=== PATIENT | female | born 1985 | race Caucasian/White ===

== ENCOUNTER 2017-02-24 13:04 | Emergency (ER) | payer MEDICAID ==
[~2017-02-24] VITALS: Ht 162.6 cm; Wt 56.9 kg
[~2017-02-24 13:04] MED LIST: AZIT500T2 PO; PANT40TA3 PO
[2017-02-24 13:13] VITALS: Ht 162.6 cm; Wt 56.9 kg
--- NOTE | 2017-02-24 13:53 | ERA ---
ER Documentation Chief Complaint Date/Time DATE: 02/24/17 TIME: 13:51 Chief Complaint VAGINAL BLEEDING 7 WEEKS ,CRAMPING HPI This is a 31-year-old female who presents with a chief complaint of left-sided abdominal pain and spotting. Patient is 7 weeks with her first . Patient denies multiple sexual partners, vaginal discharge, dysuria , hematuria, or severe abdominal pain. Patient has a history of ovarian cysts and claims that this feels similar. Patient has not taken any medications at this time to relieve the symptoms. ROS All systems reviewed and are negative except as per history of present illness. Medications Home Meds Active Scripts Azithromycin* (Zithromax* Tri-Jimmy) 500 Mg Tablet, 500 MG PO DAILY for 3 Days, TAB Prov:EILEEN PAZ MD 07/28/15 Reported Medications Pantoprazole* (Protonix*) 40 Mg Tablet.dr, 40 MG PO DAILY, TAB 07/28/15 Allergies Allergies: Coded Allergies: Penicillins (Verified Allergy, Unknown, 02/24/17) cimetidine (Verified Allergy, Unknown, 02/24/17) PMhx/Soc Hx Alcohol Use: No Hx Substance Use: No Hx Tobacco Use: No Physical Exam Vitals Vital Signs Date Time Temp Pulse Resp B/P Pulse Ox O2 Delivery O2 Flow Rate FiO2 02/24/17 13:13 99.5 83 18 116/75 100 Physical Exam Const: Well-appearing 31-year-old female who is 7 weeks presenting with her boyfriend. Head: Atraumatic Eyes: Normal Conjunctiva ENT: Normal External Ears, Nose and Mouth. Neck: Full range of motion..~ No meningismus. Resp: Clear to auscultation bilaterally Cardio: Regular rate and rhythm, no murmurs Abd: Soft, non tender, non distended. Normal bowel sounds Skin: No petechiae or rashes Back: No midline or flank tenderness Ext: No cyanosis, or edema Neur: Awake and alert Psych: Normal Mood and Affect Result Diagram: 02/24/17 1410 Results 24 hrs Laboratory Tests Test 02/24/17 14:10 White Blood Count 8.310^3/ul Red Blood Count 4.5110^6/ul Hemoglobin 14.0g/dl Hematocrit 41.3% Mean Corpuscular Volume 91.6fl Mean Corpuscular Hemoglobin 31.0pg Mean Corpuscular Hemoglobin Concent 33.9g/dl Red Cell Distribution Width 12.0% Platelet Count 88835^3/UL Mean Platelet Volume 10.6fl Neutrophils % 58.2% Lymphocytes % 31.2% Monocytes % 8.2% Eosinophils % 1.2% Basophils % 0.8% Nucleated Red Blood Cells % 0.0/100WBC Neutrophils # 4.810^3/ul Lymphocytes # 2.610^3/ul Monocytes # 0.710^3/ul Eosinophils # 0.110^3/ul Basophils # 0.110^3/ul Nucleated Red Blood Cells # 0.010^3/ul Urine Color LT. YELLOW Urine Clarity CLEAR Urine pH 6.0 Urine Specific [place] 1.020 Urine Ketones NEGATIVE Urine Nitrite NEGATIVE Urine Bilirubin NEGATIVE Urine Urobilinogen 0.2 E.U./dL Urine Leukocyte Esterase NEGATIVE Urine Microscopic RBC Pending Urine Microscopic WBC Pending Urine Hemoglobin TRACE Urine Glucose NEGATIVE% Urine Total Protein NEGATIVE Procedures/MDM Patient was worked up and evaluated for mild pelvic pain and spotting while 7 weeks . Ultrasound studies showed the followin. Single intrauterine gestational sac measuring 1.99 cm. There is no pole or yolk sac indicating probable failed . Follow-up ultrasound in 7 days is advised. 2. Small amount of fluid in the endometrial canal. 3. Otherwise unremarkable study. Most likely diagnosis at this time is spontaneous versus threatened . Cannot rule out viable or ectopic at this time. Patient has been advised to follow-up with SURFACE GRINDING [facility]INE [facility] or to the emergency department in 2 days for repeat beta hCG levels as well as follow-up and 7 days for repeat ultrasound. I have spoken with the patient and explained her current status and she has verbally acknowledges she understands. Patient's vitals are currently stable and her current condition is appropriate for discharge. We will go ahead and discharge the patient with discharge instructions and return precautions. Departure Diagnosis: Primary Impression: Vaginal bleeding Additional Impression: Spontaneous Condition: Stable Additional Instructions: Follow-up with [facility] or return to emergency department in 2 days for repeat beta hCG values and follow-up and 7 days for repeat ultrasound. Return the the emergency department immediately if symptoms worsen or change. If you have any questions regarding medications, ask your pharmacist or us before you leave. If any adverse reactions occur while taking your medications, discontinue the treatment and return to the emergency department immediately. Take your medications as directed, and complete the entire course of treatment. VALERIA KIRBY PA-C February 24, 2017 13:53 VALERIA KIRBY PA-C February 24, 2017 13:53
[2017-02-24 14:35] LABS: ADD SCAN DIFF NO
[2017-02-24 14:44] LABS: BASOPHIL # 0.1 10^3/ul (0.0-0.1); BASOPHILS % 0.8 % (0.0-2.0); EOSINOPHILS # 0.1 10^3/ul (0.0-0.5); EOSINOPHILS % 1.2 % (0.0-7.0); HEMATOCRIT 41.3 % (37.0-47.0); LYMPHOCYTES # 2.6 10^3/ul (0.8-2.9); LYMPHOCYTES % 31.2 % (15.0-51.0); MEAN CORPUSCULAR HGB CONC 33.9 g/dl (32.0-37.0); MEAN CORPUSCULAR VOLUME 91.6 fl (82.0-101.0); MEAN PLATELET VOLUME 10.6 fl (7.4-10.4); MONOCYTE # 0.7 10^3/ul (0.3-0.9); MONOCYTES % 8.2 % (0.0-11.0); NEUTROPHIL # 4.8 10^3/ul (1.6-7.5); NEUTROPHILS % 58.2 % (39.0-77.0); PLATELET COUNT 264 10^3/UL (140-415); RED BLOOD COUNT 4.51 10^6/ul (4.20-5.40); WHITE BLOOD COUNT 8.3 10^3/ul (4.8-10.8)
[2017-02-24 14:47] LABS: ADD UMIC YES; URINE BILIRUBIN (Dip) NEGATIVE (NEGATIVE); URINE BLOOD (Dip) TRACE (NEGATIVE); URINE COLOR LT. YELLOW (YELLOW); URINE GLUCOSE (Dip) NEGATIVE (NEGATIVE); URINE KETONES (Dip) NEGATIVE (NEGATIVE); URINE LEUKOCYTE ESTERASE (Dip) NEGATIVE (NEGATIVE); URINE NITRITE (Dip) NEGATIVE (NEGATIVE); URINE TOTAL PROTEIN (Dip) NEGATIVE (NEGATIVE); URINE UROBILINOGEN (Dip) 0.2 E.U./dL (0.1-1.0)
--- NOTE | 2017-02-24 14:50 | RADRPT ---
PROCEDURE: OB Ultrasound. CLINICAL INDICATION: Positive test. Vaginal bleeding. TECHNIQUE: Ultrasound of the pelvis was performed with transabdominal and transvaginal sonography in the axial and sagittal planes. COMPARISON: No prior study is available for comparison. FINDINGS: There is a single intrauterine gestational sac. pole and yolk sac are are not visualized. Mean sac diameter is 1.99 cm. Menstrual age by ultrasound dates is 6 weeks 6 days. There is a small amount of fluid in the endometrial canal in a region measuring 0.4 x 0.3 x 0.4 cm. The right ovary appears normal measuring 2.7 x 2.0 x 1.9 cm. The left ovary appears normal measuring 2.6 x 1.3 x 1.8 cm. Color Doppler and pulsed Doppler sonography demonstrate normal flow to the ovaries. There is no other pelvic mass or free fluid. IMPRESSION: 1. Single intrauterine gestational sac measuring 1.99 cm. There is no pole or yolk sac indic ating probable failed . Follow-up ultrasound in 7 days is advised. 2. Small amount of fluid in the endometrial canal. 3. Otherwise unremarkable study. RPTAT: QQ .Hal Mann MD, Date Time Electronically viewed and signed by .Hal Mann MD, on 02/24/2017 14:50 .R/
[2017-02-24 15:27] LABS: SQUAMOUS EPITHELIAL CELL,UR MODERATE; URINE RBCS 0-2 /HPF (0)
[2017-02-24 15:28] LABS: BACTERIA,URINE MODERATE; MUCUS,URINE MODERATE
[2017-02-24 16:03] VITALS: BP 124/79; PULSE 97; RESP 16; TEMP 99.9
== END 2017-02-24 16:04 | disposition home or self-care (01) ==
LOC: FTE 13:04
DX: O03.9 Complete or unspecified spontaneous abortion without complication (principal); R10.2 Pelvic and perineal pain
CPT/HCPCS: 76801; 76817; 81001; 84702; 85025; 86900; 86901; Z7502

== ENCOUNTER 2017-07-20 16:43 | Emergency (ER) | payer MEDICAID ==
[~2017-07-20] VITALS: Ht 157.5 cm; Wt 56.0 kg
[2017-07-20 16:47] VITALS: Ht 157.5 cm; Wt 56.0 kg
--- NOTE | 2017-07-20 17:20 | ERD ---
ER Documentation Chief Complaint Date/Time DATE: 07/20/17 TIME: 17:19 Chief Complaint sob, appear having anxiety attack HPI 32-year-old female, history of anxiety otherwise healthy presents with shortness of breath, numbness to her fingers, and chest pain. At the started about an hour ago when she was at home with her , states that she was having auditory and visual hallucinations stating that someone might of been in the home and she heard some noise he states that he did not hear any of this at the time. She has not had any new stressors, states that she tried taking Benadryl with help with her symptoms. She has not had any leg pain, leg swelling, recent travel, or takes OCPs. She has no history of DVT or pulmonary embolus. ROS All systems reviewed and are negative except as per history of present illness. Medications Home Meds Active Scripts Lorazepam* (Ativan*) 0.5 Mg Tablet, 0.5 MG PO Q8, #10 TAB Prov:ARCHIE GUNTER PA-C 07/20/17 Azithromycin* (Zithromax* Tri-Jimmy) 500 Mg Tablet, 500 MG PO DAILY for 3 Days, TAB Prov:EILEEN PAZ MD 07/28/15 Reported Medications Pantoprazole* (Protonix*) 40 Mg Tablet.dr, 40 MG PO DAILY, TAB 07/28/15 Allergies Allergies: Coded Allergies: Penicillins (Verified Allergy, Unknown, 07/20/17) cimetidine (Verified Allergy, Unknown, 07/20/17) PMhx/Soc History of Surgery: Yes (dilatation and curretage) Anesthesia Reaction: No Hx Neurological Disorder: No Hx Respiratory Disorders: No Hx Cardiac Disorders: No Hx Psychiatric Problems: No Hx Miscellaneous Medical Probl: No Hx Alcohol Use: No Hx Substance Use: No Hx Tobacco Use: No Physical Exam Vitals Vital Signs Date Time Temp Pulse Resp B/P Pulse Ox O2 Delivery O2 Flow Rate FiO2 07/20/17 18:54 98.0 90 18 124/76 99 Room Air 07/20/17 16:47 98.1 120 28 134/84 99 Physical Exam General: Tachypnea, anxious, diaphoretic. HEENT: Head is normocephalic, atraumatic. No scleral icterus. Pupils are equal , round, and reactive. Pharynx is clear. Neck: Supple. Nontender. Masses. Lungs: Clear to auscultation. Normal air movement. Heart: Regular rate and rhythm. S1 and S2 are normal. No murmurs, gallops, or rubs. Abdomen: Soft, nontender, nondistended. Bowel sounds are normoactive. Extremities: No clubbing or cyanosis. Normal pulses. Moving extremities x 4. No weakness. Neurologic: Alert and oriented 3. No focal deficits. Skin: Normal turgor. No rash or lesions. Plan anxious, not suicidal, denies any thoughts of hurting herself. Results 24 hrs Current Medications Medications (Trade) Dose Ordered Sig/Otf Route PRN Reason Start Time Stop Time Status Last Admin Dose Admin Lorazepam 1 mg 1 mg ONCE ONCE IV 07/20/17 17:30 07/20/17 17:31 DC 07/20/17 17:15 Sodium Chloride (NS) 1,000 ml @ 1,000 mls/hr Q1H ONCE IV 07/20/17 17:30 07/20/17 18:29 DC 07/20/17 17:12 12-lead EKG(interpreted by supervising physician): Dr. Montes Rate/Rhythm: Normal Sinus Rhythm, rate of 88 QRS, ST, T-waves: No changes consistent w/ acute ischemia, no intervals, no dysrhythmias, no ectopy Impression: No evidence of ischemia or arrhythmia Procedures/MDM ED course: Patient had an IV line established, she was given Ativan 1 mg IV with fluid bolus of normal saline 1 L. Medical decision makin-year-old female presents with shortness of breath, tachycardia appearing very anxious. Patient was treated with ativan and fluids and tachypnea, tachycardia resolved. patient was concerned of a respiratory issue, I doubt pulmonary embolus, TIA, stroke, asthma, dissection, acute coronary syndrome. 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 Symptoms are most consistent with anxiety, as she responded well to Ativan. Departure Diagnosis: Primary Impression: Anxiety Condition: ARCHIE Alcocer PA-C Jul 20, 2017 17:20
[2017-07-20] MEDS ORDERED: LORAZEPAM 2 MG INJ IV ONE (17:30)
[2017-07-20] MEDS ORDERED: SOD CHLORIDE 0.9% 1,000 ML IV ONE (17:30)
[2017-07-20] MEDS ORDERED: LORA-441 PO (18:42)
[2017-07-20 18:54] VITALS: BP 124/76; PULSE 90; RESP 18; TEMP 98
== END 2017-07-20 18:53 | disposition home or self-care (01) ==
LOC: FTE 16:43
DX: F41.9 Anxiety disorder, unspecified (principal)
CPT/HCPCS: 93005; 96374; J2060; J7030; Z7502

== ENCOUNTER 2017-07-22 12:12 | Emergency (ER) | payer MEDICAID ==
[~2017-07-22] VITALS: Wt 52.3 kg
[~2017-07-22 12:12] MED LIST changes: +LORA-441 PO
[2017-07-22] MEDS ORDERED: ONDANSETRON 4 MG INJ IV STA (15:08)
[2017-07-22] MEDS ORDERED: SOD CHLORIDE 0.9% 1,000 ML IV STA (15:08)
[2017-07-22 15:39] LABS: BASOPHIL # 0.1 10^3/ul (0.0-0.1); EOSINOPHILS % 0.2 % (0.0-7.0); HEMATOCRIT 39.1 % (37.0-47.0); HEMOGLOBIN 13.9 g/dl (12.0-16.0); LYMPHOCYTES # 1.4 10^3/ul (0.8-2.9); LYMPHOCYTES % 23.1 % (15.0-51.0); MEAN CORPUSCULAR HEMOGLOBIN 31.9 pg (29.0-33.0); MEAN CORPUSCULAR HGB CONC 35.5 g/dl (32.0-37.0); MEAN CORPUSCULAR VOLUME 89.7 fl (82.0-101.0); MEAN PLATELET VOLUME 10.2 fl (7.4-10.4); MONOCYTE # 0.3 10^3/ul (0.3-0.9); MONOCYTES % 5.5 % (0.0-11.0); NEUTROPHIL # 4.3 10^3/ul (1.6-7.5); PLATELET COUNT 245 10^3/UL (140-415); RED BLOOD COUNT 4.36 10^6/ul (4.20-5.40); RED CELL DISTRIBUTION WIDTH 11.9 % (11.5-14.5); WHITE BLOOD COUNT 6.1 10^3/ul (4.8-10.8)
[2017-07-22 15:55] LABS: ADD UMIC NO; UR ASCORBIC ACID NEGATIVE (NEGATIVE); UR BACTERIA FEW /HPF (NONE SEEN); UR BILIRUBIN (Dip) NEGATIVE (NEGATIVE); UR BLOOD (Dip) NEGATIVE (NEGATIVE); UR CLARITY SLIGHTLY CLOUDY (CLEAR); UR COLOR YELLOW (YELLOW); UR GLUCOSE (Dip) NEGATIVE (NEGATIVE); UR KETONES (Dip) 2+ mg/dL (NEGATIVE); UR LEUKOCYTE ESTERASE (Dip) NEGATIVE Leu/ul (NEGATIVE); UR MUCUS MODERATE /HPF (NONE SEEN); UR NITRITE (Dip) NEGATIVE (NEGATIVE); UR RBC 0 /HPF (0-5); UR SPECIFIC GRAVITY (Dip) 1.015 (1.003-1.030); UR SQUAMOUS EPITHELIAL CELL FEW /HPF (FEW); UR TOTAL PROTEIN (Dip) NEGATIVE (NEGATIVE); UR UROBILINOGEN (Dip) NEGATIVE (NEGATIVE)
[2017-07-22 15:57] LABS: ALBUMIN 4.7 g/dl (3.3-4.9); ALBUMIN/GLOBULIN RATIO 1.42; BILIRUBIN,INDIRECT 1.6 mg/dl (0-1.1); BILIRUBIN,TOTAL 1.6 mg/dl (0.2-1.3); CALCIUM 9.9 mg/dl (8.4-10.2); CREATININE 0.66 mg/dl (0.44-1.00); POTASSIUM 3.2 mmol/L (3.5-5.1)
[2017-07-22] MEDS ORDERED: ACET500C5 PO (17:26)
[2017-07-22] MEDS ORDERED: ONDA4TAB14 PO (17:26)
[2017-07-22 17:36] VITALS: BP 128/70; PULSE 79; RESP 18; TEMP 98.5
--- NOTE | 2017-07-22 17:43 | ERD ---
ER Documentation Chief Complaint Date/Time DATE: 07/22/17 TIME: 17:30 Chief Complaint n/v/d, bodyaches, chills, r. neck pain HPI 32-year-old female patient with a past medical history of gastric ulcer presents to the ED complaining of vomiting and diarrhea that started intermittently for 5 days. Reports that she has some throat pain. States that she feels like something is stuck in her throat. Reports her last menstruation was on July 02, 2017. Reports that her diarrhea is greenish in color. Denies any melena, bloody stools, abdominal pain, chest pain, shortness of breath, wheezing, fever, chills. Denies any dysuria, urgency, frequency, hematuria. ROS All systems reviewed and are negative except as per history of present illness. Medications Home Meds Active Scripts Acetaminophen* (Tylophen*) 500 Mg Capsule, 1 CAP PO Q6H Y for PAIN AND OR ELEVATED TEMP, #20 CAP Prov:JESUS TODD PA-C 07/22/17 Ondansetron (Ondansetron Odt) 4 Mg Tab.rapdis, 4 MG PO Q6H Y for NAUSEA AND/OR VOMITING, #10 TAB Prov:JESUS TODD PA-C 07/22/17 Lorazepam* (Ativan*) 0.5 Mg Tablet, 0.5 MG PO Q8, #10 TAB Prov:ARCHIE GUNTER PA-C 07/20/17 Azithromycin* (Zithromax* Tri-Jimmy) 500 Mg Tablet, 500 MG PO DAILY for 3 Days, TAB Prov:EILEEN PAZ MD 07/28/15 Reported Medications Pantoprazole* (Protonix*) 40 Mg Tablet.dr, 40 MG PO DAILY, TAB 07/28/15 Allergies Allergies: Coded Allergies: Penicillins (Verified Allergy, Unknown, 07/20/17) cimetidine (Verified Allergy, Unknown, 07/20/17) PMhx/Soc History of Surgery: Yes (dilatation and curretage) Anesthesia Reaction: No Hx Neurological Disorder: No Hx Respiratory Disorders: No Hx Cardiac Disorders: No Hx Psychiatric Problems: No Hx Miscellaneous Medical Probl: No Hx Alcohol Use: No Hx Substance Use: No Hx Tobacco Use: No Smoking Status: Never smoker Physical Exam Vitals Vital Signs Date Time Temp Pulse Resp B/P Pulse Ox O2 Delivery O2 Flow Rate FiO2 07/22/17 17:36 98.5 79 18 128/70 99 Room Air 07/22/17 12:14 98.8 98 20 130/73 99 Physical Exam Const: [id number], well-nourished. In no acute distress. Head: Atraumatic, normocephalic Eyes: Normal Conjunctiva without injection. No purulent discharge. ENT: Normal external ear, nose. Moist oropharynx without tonsillar exudates. Non -erythematous pharynx. Uvula midline. No drooling. No trismus. Neck: No cervical midline tenderness. Full range of motion. No meningismus. No cervical lymphadenopathy. No JVD. Resp: Clear to auscultation bilaterally. No wheezing, rhonchi, rales, or crackles. No accessory muscle use. No retractions. Cardio: Regular rate and rhythm. No murmurs, rubs or gallops. Abd: Soft, nontender, non distended. Normal bowel sounds. No palpable masses. No rebound tenderness. No guarding. Negative McBurney's point. Negative psoas sign. Negative obturator sign. Skin: No petechiae or rashes Back: No midline tenderness. No CVA tenderness. Ext: No cyanosis, or edema. Neur: Awake and alert. Normal gait. Normal coordination. Psych: Normal Mood and Affect Results 24 hrs Laboratory Tests Test 07/22/17 13:26 07/22/17 15:28 Urine Color YELLOW Urine Clarity SLIGHTLY CLOUDY Urine pH 5.0 Urine Specific [place] 1.015 Urine Ketones 2+mg/dL Urine Nitrite NEGATIVEmg/dL Urine Bilirubin NEGATIVEmg/dL Urine Urobilinogen NEGATIVEmg/dL Urine Leukocyte Esterase NEGATIVELeu/ul Urine Microscopic RBC 0/HPF Urine Microscopic WBC 1/HPF Urine Squamous Epithelial Cells FEW/HPF Urine Bacteria FEW/HPF Urine Mucus MODERATE/HPF Urine Hemoglobin NEGATIVEmg/dL Urine Glucose NEGATIVEmg/dL Urine Total Protein NEGATIVEmg/dl White Blood Count 6.110^3/ul Red Blood Count 4.3610^6/ul Hemoglobin 13.9g/dl Hematocrit 39.1% Mean Corpuscular Volume 89.7fl Mean Corpuscular Hemoglobin 31.9pg Mean Corpuscular Hemoglobin Concent 35.5g/dl Red Cell Distribution Width 11.9% Platelet Count 32572^3/UL Mean Platelet Volume 10.2fl Neutrophils % 70.0% Lymphocytes % 23.1% Monocytes % 5.5% Eosinophils % 0.2% Basophils % 1.0% Nucleated Red Blood Cells % 0.0/100WBC Neutrophils # 4.310^3/ul Lymphocytes # 1.410^3/ul Monocytes # 0.310^3/ul Eosinophils # 0.010^3/ul Basophils # 0.110^3/ul Nucleated Red Blood Cells # 0.010^3/ul Sodium Level 143mmol/L Potassium Level 3.2mmol/L Chloride Level 105mmol/L Carbon Dioxide Level 26mmol/L Anion Gap 15 Blood Urea Nitrogen 6mg/dl Creatinine 0.66mg/dl Glucose Level 95mg/dl Calcium Level 9.9mg/dl Total Bilirubin 1.6mg/dl Direct Bilirubin 0.00mg/dl Indirect Bilirubin 1.6mg/dl Aspartate Amino Transf (AST/SGOT) 19IU/L Alanine Aminotransferase (ALT/SGPT) 25IU/L Alkaline Phosphatase 66IU/L Total Protein 8.0g/dl Albumin 4.7g/dl Globulin 3.30g/dl Albumin/Globulin Ratio 1.42 Lipase 78U/L Current Medications Medications (Trade) Dose Ordered Sig/Otf Route PRN Reason Start Time Stop Time Status Last Admin Dose Admin Sodium Chloride (NS) 1,000 ml @ 1,000 mls/hr Q1H STAT IV 07/22/17 15:08 07/22/17 16:07 DC 07/22/17 15:36 Ondansetron HCl (Zofran Inj) 4 mg ONCE STAT IV 07/22/17 15:08 07/22/17 15:10 DC 07/22/17 15:36 Procedures/MDM 32-year-old female patient with no significant past medical history presents to the ED complaining of nausea, vomiting, diarrhea, throat pain. Patient is afebrile and nontoxic-appearing. Patient has normal vital signs. Patient was further worked up with CBC, CMP, lipase, UA. Patient's pain and symptoms have improved after treatment with 4 mg IV Zofran and 1 L normal saline. CBC: No leukocytosis. No e/o of systemic infection. No e/o anemia. CMP: No e/o severe acidosis, alkalosis, renal failure, diabetic ketoacidosis, liver disease Lipase within normal limits. Urine: No leukocyte esterase, no nitrites, no hematuria. Urine : Negative Rapid strep negative. Pending throat culture. Low suspicion for pneumonia, Julio Cesar's angina, peritonsillar abscess, retropharyngeal abscess, otitis media, mastoiditis, sinusitis, ectopic , ovarian torsion, gastritis, GERD, peptic ulcer disease, cholecystitis, choledocholithiasis, cholangitis, pancreatitis, appendicitis, bowel obstruction, ileus, volvulus, nephrolithiasis , pyelonephritis, hepatitis, perforated viscus, diverticulitis, strangulated/ incarcerated hernia, DKA, acute abdomen, mesenteric ischemia or other emergent conditions. Discharge medications: Tylenol, Zofran Follow up with primary care physician in 1-2 days for referral to concrete float maker. High potassium diet recommended - bananas. Patient was called at 7:30pm to offer treatment of potassium of 3.2 however she did not fruit picker her phone. Instructed patient to return to the ED sooner for any worsening symptoms. Patient's questions were answered. Patient understood and agreed with discharge plan. Patient discharged stable. Departure Diagnosis: Primary Impression: Throat pain Additional Impression: Vomiting and diarrhea Condition: Stable Patient Instructions: Pharyngitis, Report Pending, Vomiting And Diarrhea, Nonspecific (Adult) Referrals: [facility] YOU HAVE RECEIVED A MEDICAL SCREENING EXAM AND THE RESULTS INDICATE THAT YOU DO NOT HAVE A CONDITION THAT REQUIRES URGENT TREATMENT IN THE EMERGENCY DEPARTMENT. FURTHER EVALUATION AND TREATMENT OF YOUR CONDITION CAN WAIT UNTIL YOU ARE SEEN IN YOUR DOCTORS OFFICE WITHIN THE NEXT 1-2 DAYS. IT IS YOUR RESPONSIBILITY TO MAKE AN APPOINTMENT FOR FOLOW-UP CARE. IF YOU HAVE A PRIMARY DOCTOR --you should call your primary doctor and schedule an appointment IF YOU DO NOT HAVE A PRIMARY DOCTOR YOU CAN CALL OUR PHYSICIAN REFERRAL HOTLINE AT IF YOU CAN NOT AFFORD TO SEE A PHYSICIAN YOU CAN CHOSE FROM THE FOLLOWING [facility] [address] [facility] [address] [facility] [address] [facility] [address] [facility] [address] [facility]. [facility] [address] [facility]. [facility] YOU HAVE RECEIVED A MEDICAL SCREENING EXAM AND THE RESULTS INDICATE THAT YOU DO NOT HAVE A CONDITION THAT REQUIRES URGENT TREATMENT IN THE EMERGENCY DEPARTMENT. FURTHER EVALUATION AND TREATMENT OF YOUR CONDITION CAN WAIT UNTIL YOU ARE SEEN IN YOUR DOCTORS OFFICE WITHIN THE NEXT 1-2 DAYS. IT IS YOUR RESPONSIBILITY TO MAKE AN APPOINTMENT FOR FOLOW-UP CARE. IF YOU HAVE A PRIMARY DOCTOR --you should call your primary doctor and schedule and appointment IF YOU DO NOT HAVE A PRIMARY DOCTOR YOU CAN CALL OUR PHYSICIAN REFERRAL HOTLINE AT . IF YOU CAN NOT AFFORD TO SEE A PHYSICIAN YOU CAN CHOSE FROM THE FOLLOWING [facility] INSTITUTIONS: [facility] [address] [place] [address] [facility] [address] [place] [address] [facility] [address] [place] [address] [facility] Additional Instructions: Call your primary care doctor TOMORROW for an appointment during the next 2-3 days.See the doctor sooner or return here if your condition worsens before your appointment time. JESUS TODD PA-C Jul 22, 2017 17:43 JESUS TODD PA-C Jul 22, 2017 17:43
== END 2017-07-22 17:37 | disposition home or self-care (01) ==
LOC: FTE 12:12
DX: R07.0 Pain in throat (principal); R11.10 Vomiting, unspecified; R19.7 Diarrhea, unspecified
CPT/HCPCS: 36415; 80053; 81001; 83690; 85025; 87880; 96374; J2405; J7030; Z7502; 81003

== ENCOUNTER 2017-10-15 13:20 | Emergency (ER) | END 2017-10-15 18:58 | disposition home or self-care (01) ==

== ENCOUNTER 2017-10-28 09:54 | Emergency (ER) | END 2017-10-28 16:37 | disposition home or self-care (01) ==

== ENCOUNTER 2017-11-05 20:52 | Inpatient (IN) | END 2017-11-06 17:54 | disposition home or self-care (01) | DRG 770 ==